=== PATIENT | male | born 1965 | race Caucasian/White ===

== ENCOUNTER 2016-09-12 16:20 | Emergency (ER) | payer SELFPAY ==
[~2016-09-12] VITALS: Ht 172.7 cm; Wt 70.0 kg
[2016-09-12] MEDS ORDERED: KETOROLAC 30MG/ML VIAL IM ONE (17:00)
[2016-09-12 18:14] VITALS: BP 128/81
== END 2016-09-12 18:16 | disposition home or self-care (01) ==
LOC: ER 16:21
DX: S10.93XA Contusion of unspecified part of neck, initial encounter (principal); S20.219A Contusion of unspecified front wall of thorax, initial encounter; V89.2XXA Person injured in unspecified motor-vehicle accident, traffic, initial encounter; Y93.89 Activity, other specified; Y92.89 Other specified places as the place of occurrence of the external cause; Y99.8 Other external cause status
CPT/HCPCS: 71010; 72040; 96372; 99284; J1885